=== PATIENT | female | born 2005 | race Caucasian/White ===

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

== ENCOUNTER 2024-04-13 20:23 | Emergency (ER) | payer BC, OTHER ==
[2024-04-13] MEDS: Dexamethasone 4 MG Tab PO ONE (22:07)
[2024-04-13] MEDS: Azithromycin 250 MG Tab PO STA (22:07)
== END 2024-04-13 22:18 | disposition home or self-care (01) ==
LOC: MW.ED 20:23
DX: J02.9 Acute pharyngitis, unspecified (principal); I10 Essential (primary) hypertension; Z79.899 Other long term (current) drug therapy; Z88.0 Allergy status to penicillin; Z88.8 Allergy status to other drugs, medicaments and biological substances; Z75.8 Other problems related to medical facilities and other health care
CPT/HCPCS: 99282; A9270; J8540

== ENCOUNTER 2024-06-19 19:46 | Emergency (ER) | payer BC ==
[2024-06-19] MEDS: Dexamethasone 4 MG Tab PO ONE (20:20)
== END 2024-06-19 20:23 | disposition home or self-care (01) ==
LOC: MW.ED 19:46
DX: J02.9 Acute pharyngitis, unspecified (principal); I10 Essential (primary) hypertension; Z79.899 Other long term (current) drug therapy; Z88.0 Allergy status to penicillin; Z88.8 Allergy status to other drugs, medicaments and biological substances
CPT/HCPCS: 99284; J8540; 99282